=== PATIENT | male | born 1975 | race Caucasian/White ===

== ENCOUNTER 2024-08-14 05:53 | Day surgery (SDC) | payer OTHER, SELFPAY ==
[2024-08-08 08:57] VITALS: BMI 41.8
[2024-08-14] MEDS ORDERED: PROPOFOL 60 ML ONE (07:05)
[2024-08-14] MEDS ORDERED: Lidocaine 2% PF 5 ML VIAL ONE (07:05)
[2024-08-14] MEDS ORDERED: PHENYLEPHRINE-NS 100 MCG/ML 10 ML SYRINGE ONE (08:42)
[2024-08-14] MEDS ORDERED: PROPOFOL 20 ML ONE (08:46)
== END 2024-08-14 10:05 | disposition home or self-care (01) ==
LOC: CSHSDC 05:53
PROVIDERS: ATTEND Surgery
PROC: 0DBL8ZX Excision of Transverse Colon, Via Natural or Artificial Opening Endoscopic, Diagnostic (ICD-10-PCS; principal; 2024-08-14)
DX: Z12.11 Encounter for screening for malignant neoplasm of colon (principal); D12.3 Benign neoplasm of transverse colon; K63.5 Polyp of colon; I10 Essential (primary) hypertension; E11.9 Type 2 diabetes mellitus without complications; E66.01 Morbid (severe) obesity due to excess calories; M19.90 Unspecified osteoarthritis, unspecified site; F41.9 Anxiety disorder, unspecified; F17.200 Nicotine dependence, unspecified, uncomplicated; Z83.719 Family history of colon polyps, unspecified; Z68.41 Body mass index [BMI] 40.0-44.9, adult; Z79.84 Long term (current) use of oral hypoglycemic drugs; Z79.1 Long term (current) use of non-steroidal anti-inflammatories (NSAID); Z79.4 Long term (current) use of insulin; Z79.899 Other long term (current) drug therapy
CPT/HCPCS: 88305; J2704